=== PATIENT | female | born 1960 | race Caucasian/White ===

== ENCOUNTER → 2021-08-07 | Outpatient (CLI) | payer BC | LOC: KOH-I 14:42 | DX: M79.672 Pain in left foot (principal); M25.572 Pain in left ankle and joints of left foot | CPT/HCPCS: 73630 ==

== ENCOUNTER → 2021-08-16 | Outpatient (CLI) | payer BC | LOC: KOH-I 08-15 13:45 | DX: G57.62 Lesion of plantar nerve, left lower limb (principal); M19.072 Primary osteoarthritis, left ankle and foot | CPT/HCPCS: 73718 ==

== ENCOUNTER → 2021-08-23 | Outpatient (CLI) | payer BC ==
[~2021-08-23] MED LIST: BACLOFEN10 MG PO; CITALOPRAM HBR20 MG PO; IBUPROFEN200 MG PO; NEURONTIN600 MG PO; PERCOCET 5/325 T1 EA PO; XANAX0.25 MG PO
[2021-08-23 11:46] LABS: HEMOGLOBIN 13.7 gm/dl (12.3-15.3); RED BLOOD COUNT 4.49 M/UL (4.00-5.10); WHITE BLOOD COUNT 4.8 K/UL (4.5-11.0)
[2021-08-23 12:10] LABS: BUN/CREATININE RATIO 29 (0-10)
== END ==
LOC: OPSV2 10:57
PROVIDERS: Podiatrist Foot & Ankle Surgery
DX: Z01.812 Encounter for preprocedural laboratory examination (principal); M19.072 Primary osteoarthritis, left ankle and foot
CPT/HCPCS: 36415; 80048; 85027